=== PATIENT | male | born 1985 | race Hispanic/Latino ===

== ENCOUNTER 2024-05-29 14:21 | Emergency (ER) | payer SELFPAY ==
[2024-05-29] MEDS ORDERED: Lidocaine 1% w/Epinephrine 1:100K 20 ML VIAL ONE (14:44)
[2024-05-29] MEDS ORDERED: Boostrix 0.5 ML (Tdap) VIAL (>/=7 yrs of age) ONE (15:04)
[2024-05-29] MEDS ORDERED: Bacitracin 1 PK ONE (15:45)
== END 2024-05-29 16:07 | disposition home or self-care (01) ==
LOC: ERS 14:21
DX: S41.112A Laceration without foreign body of left upper arm, initial encounter (principal); V48.2XXA Person on outside of car injured in noncollision transport accident in nontraffic accident, initial encounter; Y99.0 Civilian activity done for income or pay
CPT/HCPCS: 12031; 90471; 90715

== ENCOUNTER 2024-11-21 18:51 | Observation (INO) | payer SELFPAY ==
[~2024-11-21 18:51] MED LIST: Iopamidol-370 76% 500 ML MDV (1 ML CHARGE) ONE
[2024-11-21] MEDS ORDERED: Metoclopramide HCl 10 MG (2 mL) VIAL ONE (19:35)
[2024-11-21 20:19] LABS: #Basophils 0.06 10x3/uL (0.0-0.2); #Eosinophils Less than 0.03 10x3/uL (0.0-0.7); #Monocytes 0.71 10x3/uL (0.11-0.59); #Neutrophils 17.42 10x3/uL (1.40-6.50); %Basophils 0.3 % (0.0-1.0); %Eosinophils 0.0 % (0.0-10.0); %Lymphocytes 6.8 % (21.0-51.0); %Monocytes 3.6 % (0.0-10.0); %Neutrophils 88.9 % (42.0-75.0); Hematocrit 45.9 % (42.0-52.0); Hemoglobin 16.0 g/dL (14.0-18.0); Mean Corpuscular Hemoglobin 29.2 pg (27.0-31.0); Mean Corpuscular Volume 83.8 fL (78.0-98.0); Platelet Count 272 10x3/uL (130-400); Red Blood Cell (RBC) Count 5.48 mill/uL (4.70-6.10); White Blood Cell (WBC) Count 19.61 10x3/uL (4.8-10.8)
[2024-11-21 20:29] LABS: ALT (SGPT) 42 U/L (Less than 45); AST (SGOT) 30 U/L (11-34); Albumin 4.7 g/dL (3.1-4.5); Alkaline Phosphatase 138 U/L (40-110); Anion Gap 16 mmol/L (10-20); BUN (Urea Nitrogen) 15 mg/dL (8.9-20.6); Bilirubin, Total 0.7 mg/dL (0.3-1.2); Calc. Creatinine Clearance 0 mL/min (70-130); Calcium 9.8 mg/dL (7.8-10.44); Carbon Dioxide 23 mmol/L (22-29); Chloride 105 mmol/L (98-107); Globulin 3.5 g/dL (2.4-3.5); Glucose 157 mg/dL (70-105); Lipase 16 U/L (8-78); Potassium 3.8 mmol/L (3.5-5.1); Sodium 140 mmol/L (136-145)
[2024-11-21] MEDS ORDERED: Ketorolac Tromethamine 30 MG (1 mL) VIAL ONE (21:00)
[2024-11-21] MEDS ORDERED: hydrALAZINE 20 MG/ML VIAL SLOW IVP PRN (22:22)
[2024-11-21] MEDS ORDERED: Glucagon 1 MG/ML KIT IM PRN (22:22)
[2024-11-21] MEDS ORDERED: Ondansetron PF 4 MG/2 ML Vial IVP PRN (22:22)
[2024-11-21] MEDS ORDERED: HYDROcodone/Acetaminophen 7.5/325 mg Tablet PO PRN (22:22)
[2024-11-21] MEDS ORDERED: Dextrose 50% Abboject 50 ML SYRINGE SLOW IVP PRN (22:22)
[2024-11-21 23:26] VITALS: BMI 33.5
[2024-11-22] MEDS: Acetaminophen 325 MG TAB PO PRN (04:32)
[2024-11-22 04:52] LABS: #Basophils 0.06 10x3/uL (0.0-0.2); #Eosinophils Less than 0.03 10x3/uL (0.0-0.7); #Monocytes 1.99 10x3/uL (0.11-0.59); #Neutrophils 19.11 10x3/uL (1.40-6.50); %Basophils 0.3 % (0.0-1.0); %Eosinophils 0.0 % (0.0-10.0); %Lymphocytes 6.7 % (21.0-51.0); %Monocytes 8.7 % (0.0-10.0); %Neutrophils 83.7 % (42.0-75.0); Hematocrit 42.4 % (42.0-52.0); Hemoglobin 14.4 g/dL (14.0-18.0); Mean Corpuscular Hemoglobin 28.3 pg (27.0-31.0); Mean Corpuscular Volume 83.5 fL (78.0-98.0); Platelet Count 245 10x3/uL (130-400); Red Blood Cell (RBC) Count 5.08 mill/uL (4.70-6.10); White Blood Cell (WBC) Count 22.83 10x3/uL (4.8-10.8)
[2024-11-22 05:17] LABS: Anion Gap 17 mmol/L (10-20); BUN (Urea Nitrogen) 13 mg/dL (8.9-20.6); Calc. Creatinine Clearance 227 mL/min (70-130); Calcium 8.8 mg/dL (7.8-10.44); Carbon Dioxide 21 mmol/L (22-29); Chloride 105 mmol/L (98-107); Glucose 151 mg/dL (70-105); Potassium 3.5 mmol/L (3.5-5.1); Sodium 139 mmol/L (136-145)
[2024-11-22] MEDS ORDERED: Bupivacaine 0.25% HCL 30 ML VIAL ONE (12:35)
[2024-11-22] MEDS ORDERED: fentaNYL PF 100 MCG/2 ML SYRINGE ONE ×2 (12:41→13:18)
[2024-11-22] MEDS ORDERED: Rocuronium Bromide 10 MG/ML (10ML VIAL) ONE (12:41)
[2024-11-22] MEDS ORDERED: Lidocaine 2% PF 100 mg/5 ml Syringe ONE (12:41)
[2024-11-22] MEDS ORDERED: SUCCINYLCHOLINE/SOD CL,ISO/PF 200 MG/10 ML SYRINGE FS ONE (12:41)
[2024-11-22] MEDS ORDERED: Ondansetron PF 4 MG/2 ML Vial ONE (12:41)
[2024-11-22] MEDS ORDERED: PROPOFOL 20 ML ONE (12:42)
[2024-11-22] MEDS ORDERED: SUGAMMADEX SODIUM 200 MG/2 ML VIAL ONE (13:09)
[2024-11-22] MEDS ORDERED: HYDROmorphone 0.5 MG/0.5 ML SYR SLOW IVP PRN (13:19)
[2024-11-22] MEDS ORDERED: Dextrose 50% Abboject 50 ML SYRINGE SLOW IVP PRN (14:00)
[2024-11-22] MEDS ORDERED: Glucagon 1 MG/ML KIT IM PRN (14:00)
[2024-11-22] MEDS ORDERED: Calcium Carbonate 500 MG ChewTAB PO PRN (14:00)
[2024-11-22] MEDS ORDERED: HYDROcodone/Acetaminophen 10/325 mg Tablet PO PRN (14:00)
[2024-11-22] MEDS ORDERED: Ondansetron PF 4 MG/2 ML Vial IVP PRN (14:00)
[2024-11-22] MEDS: D5 1/2 NS w/20 mEq KCL 1,000 ML IV SCH (14:36)
[2024-11-22] MEDS: Ketorolac Tromethamine 30 MG (1 mL) VIAL IVP SCH (17:59)
[2024-11-22] MEDS: Famotidine 20 MG TAB PO SCH (20:10)
[2024-11-22] MEDS: Famotidine/PF 20 mg/2ml Vial SLOW IVP SCH (22:20)
[2024-11-23 05:31] VITALS: BP 98/64; TEMP 97.6
[2024-11-23 08:25] LABS: #Basophils 0.05 10x3/uL (0.0-0.2); #Eosinophils 0.03 10x3/uL (0.0-0.7); #Monocytes 0.93 10x3/uL (0.11-0.59); #Neutrophils 13.93 10x3/uL (1.40-6.50); %Basophils 0.3 % (0.0-1.0); %Eosinophils 0.2 % (0.0-10.0); %Lymphocytes 14.7 % (21.0-51.0); %Monocytes 5.3 % (0.0-10.0); %Neutrophils 79.0 % (42.0-75.0); Hematocrit 40.8 % (42.0-52.0); Hemoglobin 13.6 g/dL (14.0-18.0); Mean Corpuscular Hemoglobin 28.8 pg (27.0-31.0); Mean Corpuscular Volume 86.4 fL (78.0-98.0); Platelet Count 213 10x3/uL (130-400); Red Blood Cell (RBC) Count 4.72 mill/uL (4.70-6.10); White Blood Cell (WBC) Count 17.63 10x3/uL (4.8-10.8)
== END 2024-11-23 10:23 | disposition home or self-care (01) ==
LOC: ERS 18:51 → SURG A 22:22
PROVIDERS: ADMIT Surgery; ATTEND Surgery
PROC: 0DTJ4ZZ Resection of Appendix, Percutaneous Endoscopic Approach (ICD-10-PCS; principal; 2024-11-21)
DX: K35.80 Unspecified acute appendicitis (principal); Z88.8 Allergy status to other drugs, medicaments and biological substances
CPT/HCPCS: 36415; 74177; 80048; 80053; 83690; 85025; 88304; 96361; 96365; 96366; 96375; 96376; G0378; J0169; J0665; J1100; J1308; J1885; J2003; J2270; J2405; J2543; J2704; J2765; J3480; J7120; Q9967